=== PATIENT | male | born 1990 | race Caucasian/White ===

== ENCOUNTER 2023-08-28 05:21 | Emergency (ER) | payer OTHER ==
[~2023-08-28] VITALS: Ht 172.7 cm; Wt 98.8 kg
[2023-08-28] MEDS ORDERED: GNPLIQ67 PO (05:31)
[2023-08-28] MEDS ORDERED: IBUP200C28 PO (05:32)
[2023-08-28] MEDS: diphenhydrAMINE 50MG/ML VIAL IV STA (07:07)
[2023-08-28] MEDS: NS 1,000 ML IV ONE (07:08)
[2023-08-28] MEDS: methylPREDNISolone 125MG 2ML VIAL IV ONE (07:08)
[2023-08-28] MEDS ORDERED: ISOVUE-370 76% 100ML VIAL As Ordered ONE (07:32)
[2023-08-28 07:38] LABS: BASO % 0.3 % (0.0-1.0); EOS # 0.1 10^3/uL (0.0-0.5); EOS % 0.8 % (0.0-3.0); HEMATOCRIT 47.5 % (42.0-52.0); HEMOGLOBIN 16.3 g/dl (13.5-17.5); LYMPH # 0.8 10^3/uL (1.5-5.0); LYMPH % 13.3 % (24.0-44.0); MEAN CORPUSCULAR HEMOGLOBIN 31.7 pg (27.0-33.0); MEAN CORPUSCULAR HGB CONC 34.3 g/dl (32.0-36.5); MEAN CORPUSCULAR VOLUME 92.2 fl (80.0-96.0); MONO # 0.6 10^3/uL (0.0-0.8); MONO % 10.5 % (2.0-8.0); NEUTROPHILS # 4.6 10^3/uL (1.5-8.5); NEUTROPHILS % 74.8 % (36.0-66.0); PLATELET COUNT, AUTOMATED 192 10^3/uL (150-450); RED BLOOD COUNT 5.15 10^6/uL (4.30-6.10); WHITE BLOOD COUNT 6.1 10^3/uL (4.0-10.0)
[2023-08-28 07:46] LABS: ERYTHROCYTE SEDIMENTATION RATE 32 mm/hr (0-15)
[2023-08-28 09:06] VITALS: BP 142/95; TEMP 96.9; O2SAT 98
[2023-08-28] MEDS ORDERED: DOXY-443 PO (09:13)
[2023-08-28] MEDS ORDERED: PROA1AER2 INH (09:13)
[2023-08-28] MEDS ORDERED: BENZ200C70 PO (09:13)
[2023-08-28] MEDS: DOXYCYCLINE HYCLATE 100MG TABLET PO ONE (09:27)
== END 2023-08-28 09:11 | disposition home or self-care (01) ==
LOC: M ED 05:21
DX: J18.9 Pneumonia, unspecified organism (principal); R59.9 Enlarged lymph nodes, unspecified; F17.200 Nicotine dependence, unspecified, uncomplicated; Z79.52 Long term (current) use of systemic steroids; Z79.2 Long term (current) use of antibiotics; Z79.899 Other long term (current) drug therapy
CPT/HCPCS: 70491; 71260; 80047; 85025; 85652; 86140; 96361; 96374; 96375; 99284; J1200; J2930; Q9967

== ENCOUNTER 2023-09-13 16:56 | Emergency (ER) | payer OTHER ==
[~2023-09-13] VITALS: Ht 177.8 cm; Wt 94.7 kg
[~2023-09-13 16:56] MED LIST: BENZ200C70 PO; DOXY-443 PO; GNPLIQ67 PO; IBUP200C28 PO; PROA1AER2 INH
[2023-09-13 20:20] VITALS: BP 178/95; TEMP 98.3
[2023-09-13] MEDS: NS 1,000 ML IV ONE (20:38)
[2023-09-13 20:52] LABS: BASO % 0.3 % (0.0-1.0); EOS % 0.2 % (0.0-3.0); HEMATOCRIT 50.3 % (42.0-52.0); HEMOGLOBIN 17.4 g/dl (13.5-17.5); LYMPH % 8.4 % (24.0-44.0); MEAN CORPUSCULAR HEMOGLOBIN 31.4 pg (27.0-33.0); MEAN CORPUSCULAR HGB CONC 34.6 g/dl (32.0-36.5); MEAN CORPUSCULAR VOLUME 90.6 fl (80.0-96.0); MONO # 0.7 10^3/uL (0.0-0.8); MONO % 6.5 % (2.0-8.0); NEUTROPHILS # 9.5 10^3/uL (1.5-8.5); NEUTROPHILS % 84.2 % (36.0-66.0); PLATELET COUNT, AUTOMATED 261 10^3/uL (150-450); RED BLOOD COUNT 5.55 10^6/uL (4.30-6.10); WHITE BLOOD COUNT 11.3 10^3/uL (4.0-10.0)
[2023-09-13 21:04] LABS: ERYTHROCYTE SEDIMENTATION RATE 35 mm/hr (0-15)
[2023-09-13 21:16] VITALS: O2SAT 96
[2023-09-13 21:18] LABS: C REACTIVE PROTEIN QUANTITATIV < 0.40 MG/DL (<1.0)
[2023-09-13 21:20] LABS: ALBUMIN 4.3 G/DL (3.2-5.2); ALKALINE PHOSPHATASE 84 U/L (46-116); ALT/SGPT 208 U/L (7.0-40); AST/SGOT 123 U/L (<34); BILIRUBIN,DIRECT 0.3 MG/DL (<0.4); BILIRUBIN,TOTAL 0.3 MG/DL (0.3-1.2); BLOOD UREA NITROGEN 14 MG/DL (9-23); CALCIUM LEVEL 9.1 MG/DL (8.5-10.1); CARBON DIOXIDE LEVEL 24 MMOL/L (20-31); CHLORIDE LEVEL 101 MMOL/L (98-107); CREATININE FOR GFR 0.74 MG/DL (0.70-1.30); GLOMERULAR FILTRATION RATE > 60.0 (>60); GLUCOSE, FASTING 85 MG/DL (60-100); SODIUM LEVEL 140 MMOL/L (136-145); TOTAL PROTEIN 7.4 G/DL (5.7-8.2)
[2023-09-13] MEDS ORDERED: ISOVUE-370 76% 100ML VIAL As Ordered ONE (21:50)
[2023-09-13] MEDS ORDERED: BENZ200C70 PO (22:52)
[2023-09-13] MEDS ORDERED: IBUP-1022 PO (22:52)
[2023-09-13] MEDS ORDERED: VENTAER INH (22:52)
== END 2023-09-13 23:58 | disposition home or self-care (01) ==
LOC: M ED 16:56
DX: J06.9 Acute upper respiratory infection, unspecified (principal); R74.01 Elevation of levels of liver transaminase levels; Z79.52 Long term (current) use of systemic steroids; Z79.1 Long term (current) use of non-steroidal anti-inflammatories (NSAID); Z79.811 Long term (current) use of aromatase inhibitors; Z79.899 Other long term (current) drug therapy
CPT/HCPCS: 70491; 71046; 71275; 80048; 80076; 85025; 85652; 86140; 87486; 87581; 87633; 87798; 87880; 96360; 99284; Q9967

== ENCOUNTER 2023-12-19 16:02 | Emergency (ER) | payer OTHER ==
[~2023-12-19] VITALS: Ht 175.3 cm; Wt 90.6 kg
[~2023-12-19 16:02] MED LIST changes: +DOXY-323 PO; -DOXY-443 PO; +IBUP-1022 PO; +VENTAER INH
[2023-12-19] MEDS ORDERED: LORazepam 2 MG TAB PO PRN (16:40)
[2023-12-19 16:58] LABS: VENOUS BASE EXCESS 1.8 (-2.0-2.0); VENOUS HCO3 27.7 MMOL/L (23.0-27.0); VENOUS O2 SATURATION 91.2 % (60.0-80.0); VENOUS PARTIAL PRESSURE CO2 47.5 mmHg (38.0-50.0); VENOUS PARTIAL PRESSURE O2 67.7 mmHg (30.0-50.0); VENOUS PH 7.383 UNITS (7.330-7.430); VENOUS STANDARD HCO3 25.8 MMOL/L; VENOUS TOTAL CO2 29.1 MMOL/L (24.0-28.0)
[2023-12-19] MEDS: NICOTINE 21MG/24HR 1 EA TRANSDERMAL TD ONE (17:01)
[2023-12-19] MEDS: MULTIVITAMINS/MINERALS THERAP 1 TAB PO SCH (17:02)
[2023-12-19] MEDS: FOLIC ACID 1MG TAB PO SCH (17:02)
[2023-12-19] MEDS: LORazepam 2 MG/ML 1ML VIAL IV STA (17:03)
[2023-12-19] MEDS: ONDANSETRON 4MG 2ML VIAL IV ONE (17:03)
[2023-12-19] MEDS: NS 1,000 ML IV ONE (17:04)
[2023-12-19 17:30] LABS: EOS % 0.3 % (0.0-3.0); HEMOGLOBIN 16.1 g/dl (13.5-17.5); LYMPH # 0.8 10^3/uL (1.5-5.0); LYMPH % 25.2 % (24.0-44.0); MEAN CORPUSCULAR HEMOGLOBIN 31.7 pg (27.0-33.0); MEAN CORPUSCULAR HGB CONC 34.3 g/dl (32.0-36.5); MEAN CORPUSCULAR VOLUME 92.5 fl (80.0-96.0); MONO # 0.5 10^3/uL (0.0-0.8); MONO % 15.4 % (2.0-8.0); NEUTROPHILS # 1.7 10^3/uL (1.5-8.5); NEUTROPHILS % 57.8 % (36.0-66.0); PLATELET COUNT, AUTOMATED 189 10^3/uL (150-450); RED BLOOD COUNT 5.08 10^6/uL (4.30-6.10)
[2023-12-19 17:32] LABS: CPK CREATINE PHOSPHOKINASE 221 U/L (46-171)
[2023-12-19 17:33] LABS: ALBUMIN 3.9 G/DL (3.2-5.2); ALKALINE PHOSPHATASE 107 U/L (46-116); ALT/SGPT 191 U/L (7.0-40); AST/SGOT 243 U/L (<34); BILIRUBIN,DIRECT 0.2 MG/DL (<0.4); BILIRUBIN,TOTAL 0.5 MG/DL (0.3-1.2); BLOOD UREA NITROGEN 11 MG/DL (9-23); CALCIUM LEVEL 8.3 MG/DL (8.5-10.1); CARBON DIOXIDE LEVEL 31 MMOL/L (20-31); CHLORIDE LEVEL 100 MMOL/L (98-107); CREATININE FOR GFR 0.62 MG/DL (0.70-1.30); GLOMERULAR FILTRATION RATE > 60.0 (>60); GLUCOSE, FASTING 101 MG/DL (60-100); MAGNESIUM LEVEL 2.1 MG/DL (1.8-2.4); SALICYLATE LEVEL < 3.0 MG/DL (<30); SODIUM LEVEL 140 MMOL/L (136-145); TOTAL PROTEIN 6.9 G/DL (5.7-8.2)
[2023-12-19 17:35] LABS: THYROID STIMULATING HORMONE 1.465 uIU/ML (0.55-4.78)
[2023-12-19 18:07] LABS: ETHYL ALCOHOL (ETHANOL) 0.456 % (0.000-0.010)
[2023-12-19] MEDS ORDERED: THIAMINE 100 MG TAB PO SCH (21:00)
[2023-12-19 21:45] VITALS: O2SAT 95
[2023-12-19 21:49] VITALS: BP 159/95; TEMP 98
== END 2023-12-19 22:00 | disposition home or self-care (01) ==
LOC: M ED 16:02
DX: F10.129 Alcohol abuse with intoxication, unspecified (principal); I45.81 Long QT syndrome
CPT/HCPCS: 80048; 80076; 80143; 82077; 82550; 82803; 83735; 84443; 85025; 93005; 93041; 94760; 96361; 96374; 99285; J2060; J2405

== ENCOUNTER 2024-03-22 13:19 | Emergency (ER) | payer OTHER ==
[~2024-03-22] VITALS: Ht 172.7 cm; Wt 93.2 kg
[~2024-03-22 13:19] MED LIST changes: -DOXY-323 PO; +DOXY-441 PO
[2024-03-22] MEDS: NS 1,000 ML IV ONE (14:05)
[2024-03-22] MEDS: LORazepam 2 MG/ML 1ML VIAL IV STA (14:13)
[2024-03-22 14:17] LABS: BASO % 0.3 % (0.0-1.0); HEMATOCRIT 45.1 % (42.0-52.0); HEMOGLOBIN 15.7 g/dl (13.5-17.5); LYMPH # 0.4 10^3/uL (1.5-5.0); LYMPH % 6.6 % (24.0-44.0); MEAN CORPUSCULAR HEMOGLOBIN 31.3 pg (27.0-33.0); MEAN CORPUSCULAR HGB CONC 34.8 g/dl (32.0-36.5); MEAN CORPUSCULAR VOLUME 89.8 fl (80.0-96.0); MONO # 0.3 10^3/uL (0.0-0.8); MONO % 5.7 % (2.0-8.0); NEUTROPHILS % 87.1 % (36.0-66.0); PLATELET COUNT, AUTOMATED 146 10^3/uL (150-450); RED BLOOD COUNT 5.02 10^6/uL (4.30-6.10); WHITE BLOOD COUNT 5.8 10^3/uL (4.0-10.0)
[2024-03-22 14:43] LABS: ETHYL ALCOHOL (ETHANOL) 0.227 % (0.000-0.010)
[2024-03-22 14:44] LABS: ALKALINE PHOSPHATASE 87 U/L (46-116); ALT/SGPT 81 U/L (7.0-40); AST/SGOT 124 U/L (<34); BILIRUBIN,DIRECT 0.2 MG/DL (<0.4); BILIRUBIN,TOTAL 0.6 MG/DL (0.3-1.2); BLOOD UREA NITROGEN 13 MG/DL (9-23); CALCIUM LEVEL 8.9 MG/DL (8.5-10.1); CARBON DIOXIDE LEVEL 26 MMOL/L (20-31); CHLORIDE LEVEL 99 MMOL/L (98-107); CREATININE FOR GFR 0.62 MG/DL (0.70-1.30); GLOMERULAR FILTRATION RATE > 60.0 (>60); GLUCOSE, FASTING 172 MG/DL (60-100); MAGNESIUM LEVEL 1.8 MG/DL (1.8-2.4); POTASSIUM SERUM 4.2 MMOL/L (3.5-5.1); SALICYLATE LEVEL < 3.0 MG/DL (<30); SODIUM LEVEL 136 MMOL/L (136-145); TOTAL PROTEIN 7.3 G/DL (5.7-8.2)
[2024-03-22 14:46] LABS: THYROID STIMULATING HORMONE 1.045 uIU/ML (0.55-4.78)
[2024-03-22 14:47] LABS: CPK CREATINE PHOSPHOKINASE 325 U/L (46-171)
[2024-03-22] MEDS: LORazepam 2 MG TAB PO PRN (16:12)
[2024-03-22] MEDS: FOLIC ACID 1MG TAB PO SCH (16:12)
[2024-03-22] MEDS: THIAMINE 100 MG TAB PO SCH (16:12)
[2024-03-22] MEDS: MULTIVITAMINS/MINERALS THERAP 1 TAB PO SCH (16:12)
[2024-03-22 17:12] LABS: AMPHETAMINES LEVEL URINE NEGATIVE (NEGATIVE); BARBITURATES URINE NEGATIVE (NEGATIVE); BENZODIAZEPINES URINE NEGATIVE (NEGATIVE); CANNABINOIDS URINE NEGATIVE (NEGATIVE); COCAINE METABOLITE URINE NEGATIVE (NEGATIVE); METHADONE URINE NEGATIVE (NEGATIVE); OPIATES URINE NEGATIVE (NEGATIVE); PHENCYCLIDINE URINE NEGATIVE (NEGATIVE)
[2024-03-22 19:00] VITALS: BP 138/80; TEMP 98.6; O2SAT 95
== END 2024-03-22 19:03 | disposition home or self-care (01) ==
LOC: M ED 13:19
DX: F10.139 Alcohol abuse with withdrawal, unspecified (principal); R00.0 Tachycardia, unspecified; F17.200 Nicotine dependence, unspecified, uncomplicated; I10 Essential (primary) hypertension
CPT/HCPCS: 80048; 80076; 80143; 80307; 82077; 82550; 83735; 84443; 85025; 93005; 93041; 94760; 96361; 96374; 99285; J2060